=== PATIENT | female | born 1980 | race Caucasian/White ===

== ENCOUNTER 2016-10-29 16:13 | Inpatient (IN) | payer MEDICARE, MEDICAID ==
[~2016-10-29 16:13] MED LIST: ACYCLOVIR800 M1 PO; BENTYL20 MG PO; COMPAZINE10 MG PO; DOXEPIN HCL25 MG PO; DOXEPIN HCL50 M1 PO; FLEXERIL10 MG PO; GLAUCOMA DROPS; HYCOSAMINE PO; HYDROCODON-ACE1 EA16 PO; HYDROCODON-ACE1 EAC7 PO; KLONOPIN1 MG; KLONOPIN2 M1 PO; KLONOPIN2 MG PO; L-THYROXINE PO; MILK OF MAGNESIA PO; MOTRIN800 MG PO; MULTIVITAMIN1 TAB PO; NEURONTIN100 M1 PO; NEURONTIN300 M1 PO; NORCO 10-325 T1 EACH PO; NORCO 10/325 TA1 TAB; NORCO 10/325 TA1 TAB PO; NORCO 10/3251 TAB PO; NORCO 5-325 TA1 EACH PO; NORCO 5/325 TAB1 TAB PO; NORCO 5/3251 TAB PO; PANTOPRAZOLE SO40 M3 PO; PRILOSEC20 M1 PO; PRISTIQ50 MG PO; PROMETHAZINE HC25 M3 PO; SEROQUEL X200 MG/TAB PO; SUCRALFATE1 GM PO; SYNTHROID88 MC1 PO; TOPAMAX100 M2 PO; TOPAMAX100 MG; TRAVATAN Z5 M1 EACH EYE; TRAVATAN Z5 M1 OP; TRAVATAN Z5 ML OP; VIBRAMYCIN100 MG/TA1 PO; ZANTAC150 M1 PO; ZOFRAN ODT4 MG PO
[2016-10-29] MEDS ORDERED: SEROQUEL X300 MG/TAB PO (16:33)
[2016-10-29 16:45] LABS: BASO % 0.3 % (0-2); EOS % 1.3 % (0-7); EOSINOPHIL ABSOLUTE COUNT 0.1 tho/cmm (0.0-0.7); HCT-HEMATOCRIT 36.3 % (34.0-49.0); IMMATURE GRANULOCYTES ABSOLUTE 0.01 tho/cmm (0-0.03); IMMATURE GRANULOCYTES PERCENT 0.1 % (0-0.3); LYMPH % 15.4 % (20-45); LYMPH ABSOLUTE COUNT 1.2 tho/cmm (0.8-4.5); MCHC MEAN CORPUSCULAR HGB CONC 33.1 % (32.0-36.0); MCV (MEAN CELL VOLUME) 124.7 fl (82.0-96.0); MEAN PLATELET VOLUME 9.2 cmc (9.4-12.4); MONO % 6.7 % (0-12); MONOCYTE ABSOLUTE COUNT 0.5 tho/cmm (0.0-1.2); NEUTROPHILS % 76.2 % (40-80); PLATELET COUNT 370 tho/cmm (150-450); RED BLOOD COUNT 2.91 mil/cmm (4.00-5.20); WHITE BLOOD COUNT 7.8 tho/cmm (4.0-10.0)
[2016-10-29 16:47] LABS: MCH (MEAN CORPUSCULAR HGB) >40.9 pg (28.0-32.0)
[2016-10-29 17:00] LABS: ALB/GLOB RATIO 0.6 (0.8-2.0); ALBUMIN 2.9 g/dl (3.5-5.0); ALKALINE PHOSPHATASE 173 U/L (33-138); ALT/SGPT 23 U/L (12-78); ANION GAP 16 mmol/L (0-20); AST/SGOT 28 U/L (10-40); BILIRUBIN,TOTAL 0.2 mg/dl (0-1.5); BLOOD UREA NITROGEN 11 mg/dl (6-24); CALCIUM 8.6 mg/dl (8.5-10.5); CARBON DIOXIDE-VENOUS 21 mmol/L (22-32); CHLORIDE 110 mmol/l (96-110); CREATININE 0.86 mg/dl (0.50-1.10); GLUCOSE 109 mg/dL (70-110); LIPASE 1015 U/L (73-393); POTASSIUM 4.4 mmol/L (3.7-5.1); SODIUM 143 mmol/L (135-145); eGFR VALUE FOR BLACK >90 mL/Min
[2016-10-29 17:02] LABS: PREGNANCY-SERUM NEGATIVE (NEGATIVE)
[2016-10-29] MEDS ORDERED: DOXEPIN HCL PO (18:19)
[2016-10-29] MEDS ORDERED: NORCO 10-325 T1 EACH PO (18:20)
[2016-10-29 19:51] LABS: ALB/GLOB RATIO 0.6 (0.8-2.0); ALBUMIN 2.9 g/dl (3.5-5.0); ALKALINE PHOSPHATASE 171 U/L (33-138); ALT/SGPT 24 U/L (12-78); AST/SGOT 30 U/L (10-40); BILIRUBIN,DIRECT <0.1 mg/dl (0.0-0.3); BILIRUBIN,INDIRECT 0.1 mg/dL (0.0-1.0); BILIRUBIN,TOTAL 0.2 mg/dl (0-1.5)
--- NOTE | 2016-10-29 21:43 | NUR ---
UPON ARRIVAL TO FLOOR FROM ER, PT STATED SHE WANTED TO LEAVE TO HAVE A CIGARETTE AND THEN RETURN. I INFORMED PT THAT THIS WAS AN NON SMOKING CAMPUS AND THAT WE HAVE A NICOTINE PATCH ORDERED FOR HER. PT BECAME TEARFUL AND SAID THE PATHCH WOULD NOT WORK AND THAT SHE NEEDED ONE CIGARETTE. THE ADMITTING DR, DR. WILKES WAS ON FLOOR SO I ASKED HIM TO TALK TO PATIENT, WHICH HE DID. AFTER TALKING TO HER DRKATRIN STATED THAT HE WAS OK WITH HER LEAVING THE FLOOR TO SMOKE THIS ONE TIME. I HAD PATIENT SIGN WAIVER BEFORE LEAVING.
[2016-10-30 04:41] LABS: BASO % 0.3 % (0-2); EOS % 1.8 % (0-7); EOSINOPHIL ABSOLUTE COUNT 0.1 tho/cmm (0.0-0.7); HCT-HEMATOCRIT 31.5 % (34.0-49.0); HGB-HEMOGLOBIN 10.3 gm/dl (12.0-15.5); IMMATURE GRANULOCYTES ABSOLUTE 0.02 tho/cmm (0-0.03); IMMATURE GRANULOCYTES PERCENT 0.3 % (0-0.3); LYMPH % 29.7 % (20-45); LYMPH ABSOLUTE COUNT 2.3 tho/cmm (0.8-4.5); MCHC MEAN CORPUSCULAR HGB CONC 32.7 % (32.0-36.0); MCV (MEAN CELL VOLUME) 124.5 fl (82.0-96.0); MEAN PLATELET VOLUME 9.1 cmc (9.4-12.4); MONO % 8.9 % (0-12); MONOCYTE ABSOLUTE COUNT 0.7 tho/cmm (0.0-1.2); NEUTROPHIL ABSOLUTE COUNT 4.5 tho/cmm (1.6-8.0); NEUTROPHIL-AUTOMATED 4.5 tho/cmm (1.6-8.0); PLATELET COUNT 315 tho/cmm (150-450); RED BLOOD COUNT 2.53 mil/cmm (4.00-5.20); RED CELL DISTRIBUTION WIDTH 13.8 % (12.4-16.4); WHITE BLOOD COUNT 7.7 tho/cmm (4.0-10.0)
[2016-10-30 04:57] LABS: ALB/GLOB RATIO 0.6 (0.8-2.0); ALBUMIN 2.1 g/dl (3.5-5.0); ALKALINE PHOSPHATASE 139 U/L (33-138); ALT/SGPT 18 U/L (12-78); AMYLASE 35 U/L (20-90); AST/SGOT 22 U/L (10-40); BILIRUBIN,TOTAL 0.2 mg/dl (0-1.5); BLOOD UREA NITROGEN 7 mg/dl (6-24); CALCIUM 7.3 mg/dl (8.5-10.5); CARBON DIOXIDE-VENOUS 21 mmol/L (22-32); CHLORIDE 114 mmol/l (96-110); CHOLESTEROL 92 mg/dl (120-200); HDL CHOLESTEROL 34 mg/dl (40-60); SODIUM 144 mmol/L (135-145); eGFR VALUE FOR BLACK >90 mL/Min
[2016-10-30 05:18] LABS: ANION GAP 12 mmol/L (0-20); LDL CHOLESTEROL 21 mg/dl (0-99); LIPASE 585 U/L (73-393); POTASSIUM 3.4 mmol/L (3.7-5.1); TRIGLYCERIDES 188 mg/dl (<149); VLDL 38 mg/dl (0-30)
[2016-10-30 05:19] LABS: GLUCOSE 62 mg/dL (70-110)
[2016-10-30 05:21] LABS: MCH (MEAN CORPUSCULAR HGB) 40.7 pg (28.0-32.0)
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
--- NOTE | 2016-10-30 08:38 | NUR ---
INFUSED ORDERED ALBUMIN AT 0645. POST INFUSION RECHECKED BP WAS 71/38 HR 95, NOTIFIED CHARGE NURSE. TOLD TO NOTIFY IMS, PAGED DR. Wilfredo OLIVEIRA, NOTIFIED LUCINA AT 8003 CHARGE ON CCU. INFORMED TO BRING PATIENT DOWN TO ROOM 375. PATIENTS CALLED AND LEFT MESSAGE WITH HIM. PATIENT STABLE UPON TRANSFER AND ARRIVAL TO ROOM
[2016-10-30 10:52] LABS: ABG CO2 ARTERIAL 19 mmol/L (21-27); ARTERIAL BLD GAS O2 SATURATION 96 % (95-98); ARTERIAL BLOOD GAS PCO2 34 mmHg (32-45); ARTERIAL PO2 79 mmHg (70-100); BICARBONATE 18 mmol/L (21-28); BLOOD GAS BASE EXCESS -7 mM/L (-/+3); PH 7.33 Units (7.35-7.45)
[2016-10-30 12:01] LABS: PROCALCITONIN 64.89 ng/ml (0.05-0.09)
[2016-10-30 12:13] LABS: PROTHROMBIN TIME 11.8 SECONDS (9.0-13.6)
[2016-10-31 05:03] LABS: BASO % 0.3 % (0-2); EOS % 1.7 % (0-7); EOSINOPHIL ABSOLUTE COUNT 0.1 tho/cmm (0.0-0.7); HCT-HEMATOCRIT 28.7 % (34.0-49.0); HGB-HEMOGLOBIN 9.3 gm/dl (12.0-15.5); IMMATURE GRANULOCYTES ABSOLUTE 0.02 tho/cmm (0-0.03); IMMATURE GRANULOCYTES PERCENT 0.3 % (0-0.3); LYMPH % 24.9 % (20-45); LYMPH ABSOLUTE COUNT 1.4 tho/cmm (0.8-4.5); MCHC MEAN CORPUSCULAR HGB CONC 32.4 % (32.0-36.0); MCV (MEAN CELL VOLUME) 124.8 fl (82.0-96.0); MEAN PLATELET VOLUME 9.2 cmc (9.4-12.4); MONO % 11.2 % (0-12); MONOCYTE ABSOLUTE COUNT 0.7 tho/cmm (0.0-1.2); NEUTROPHIL ABSOLUTE COUNT 3.6 tho/cmm (1.6-8.0); NEUTROPHIL-AUTOMATED 3.6 tho/cmm (1.6-8.0); NEUTROPHILS % 61.6 % (40-80); PLATELET COUNT 290 tho/cmm (150-450); RED CELL DISTRIBUTION WIDTH 14.2 % (12.4-16.4); WHITE BLOOD COUNT 5.8 tho/cmm (4.0-10.0)
[2016-10-31 05:19] LABS: MCH (MEAN CORPUSCULAR HGB) 40.4 pg (28.0-32.0)
[2016-10-31 05:25] LABS: ALB/GLOB RATIO 0.6 (0.8-2.0); ALBUMIN 1.9 g/dl (3.5-5.0); ALKALINE PHOSPHATASE 115 U/L (33-138); ALT/SGPT 13 U/L (12-78); AMYLASE 25 U/L (20-90); ANION GAP 9 mmol/L (0-20); AST/SGOT 18 U/L (10-40); BILIRUBIN,TOTAL 0.2 mg/dl (0-1.5); BLOOD UREA NITROGEN 2 mg/dl (6-24); CALCIUM 7.4 mg/dl (8.5-10.5); CARBON DIOXIDE-VENOUS 23 mmol/L (22-32); CHLORIDE 118 mmol/l (96-110); CREATININE 0.56 mg/dl (0.50-1.10); MAGNESIUM 1.9 mg/dl (1.3-2.6); PHOSPHOROUS 2.1 mg/dl (2.5-4.9); POTASSIUM 3.2 mmol/L (3.7-5.1); SODIUM 147 mmol/L (135-145); eGFR VALUE FOR BLACK >90 mL/Min
[2016-10-31 05:30] LABS: GLUCOSE 95 mg/dL (70-110); LIPASE 360 U/L (73-393)
[2016-10-31 06:31] LABS: PROCALCITONIN 32.02 ng/ml (0.05-0.09)
[2016-11-01 04:34] LABS: BASO % 0.3 % (0-2); EOS % 1.9 % (0-7); EOSINOPHIL ABSOLUTE COUNT 0.1 tho/cmm (0.0-0.7); HCT-HEMATOCRIT 32.5 % (34.0-49.0); HGB-HEMOGLOBIN 10.4 gm/dl (12.0-15.5); IMMATURE GRANULOCYTES ABSOLUTE 0.02 tho/cmm (0-0.03); IMMATURE GRANULOCYTES PERCENT 0.3 % (0-0.3); LYMPH % 34.1 % (20-45); LYMPH ABSOLUTE COUNT 2.3 tho/cmm (0.8-4.5); MCV (MEAN CELL VOLUME) 126.5 fl (82.0-96.0); MEAN PLATELET VOLUME 9.5 cmc (9.4-12.4); MONO % 10.5 % (0-12); MONOCYTE ABSOLUTE COUNT 0.7 tho/cmm (0.0-1.2); NEUTROPHIL ABSOLUTE COUNT 3.6 tho/cmm (1.6-8.0); NEUTROPHIL-AUTOMATED 3.6 tho/cmm (1.6-8.0); NEUTROPHILS % 52.9 % (40-80); PLATELET COUNT 312 tho/cmm (150-450); RED BLOOD COUNT 2.57 mil/cmm (4.00-5.20); RED CELL DISTRIBUTION WIDTH 14.2 % (12.4-16.4); WHITE BLOOD COUNT 6.9 tho/cmm (4.0-10.0)
[2016-11-01 04:38] LABS: AMYLASE 34 U/L (20-90); ANION GAP 13 mmol/L (0-20); BLOOD UREA NITROGEN 1 mg/dl (6-24); CALCIUM 7.8 mg/dl (8.5-10.5); CARBON DIOXIDE-VENOUS 22 mmol/L (22-32); CHLORIDE 115 mmol/l (96-110); CREATININE 0.64 mg/dl (0.50-1.10); GLUCOSE 119 mg/dL (70-110); LIPASE 355 U/L (73-393); POTASSIUM 3.5 mmol/L (3.7-5.1); SODIUM 146 mmol/L (135-145); eGFR VALUE FOR BLACK >90 mL/Min
[2016-11-01 04:59] LABS: MCH (MEAN CORPUSCULAR HGB) 40.5 pg (28.0-32.0)
[2016-11-01 05:42] LABS: PROCALCITONIN 12.86 ng/ml (0.05-0.09)
[2017-03-10] MEDS ORDERED: NORCO 5-325 TA1 EACH PO (16:27)
== END 2016-11-01 15:00 | DRG 872 ==
LOC: EDMED 16:13 → EMR2 19:20 → 5WF 21:20 → CCU 10-30 08:10
PROVIDERS: Emergency Medicine; Hospitalist; Internal Medicine; Internal Medicine Pulmonary Disease; ADMIT Hospitalist
DX: A41.89 Other specified sepsis (principal); E44.0 Moderate protein-calorie malnutrition; F33.9 Major depressive disorder, recurrent, unspecified; S91.001A Unspecified open wound, right ankle, initial encounter; A08.4 Viral intestinal infection, unspecified; R65.20 Severe sepsis without septic shock; E86.9 Volume depletion, unspecified; K52.9 Noninfective gastroenteritis and colitis, unspecified; D53.9 Nutritional anemia, unspecified; F60.3 Borderline personality disorder; E06.3 Autoimmune thyroiditis; G43.909 Migraine, unspecified, not intractable, without status migrainosus; F43.10 Post-traumatic stress disorder, unspecified; H40.9 Unspecified glaucoma; E87.6 Hypokalemia; F17.210 Nicotine dependence, cigarettes, uncomplicated; K21.9 Gastro-esophageal reflux disease without esophagitis; X58.XXXA Exposure to other specified factors, initial encounter; Z86.711 Personal history of pulmonary embolism; Z86.718 Personal history of other venous thrombosis and embolism
CPT/HCPCS: C1751; C9113; J0744; J1650; J2270; J2405; J2543; J3370; J3480; J7030; J7040; J7050; P9045; Q9967

== ENCOUNTER 2016-11-08 13:44 | Inpatient (IN) | payer MEDICARE, MEDICAID ==
[~2016-11-08 13:44] MED LIST changes: +DOXEPIN HCL PO; +SEROQUEL X300 MG/TAB PO
[2016-11-08 17:47] LABS: BASO % 0.3 % (0-2); EOS % 1.3 % (0-7); EOSINOPHIL ABSOLUTE COUNT 0.1 tho/cmm (0.0-0.7); HCT-HEMATOCRIT 36.6 % (34.0-49.0); HGB-HEMOGLOBIN 12.1 gm/dl (12.0-15.5); IMMATURE GRANULOCYTES ABSOLUTE 0.06 tho/cmm (0-0.03); LYMPH % 31.6 % (20-45); LYMPH ABSOLUTE COUNT 1.9 tho/cmm (0.8-4.5); MCHC MEAN CORPUSCULAR HGB CONC 33.1 % (32.0-36.0); MCV (MEAN CELL VOLUME) 124.1 fl (82.0-96.0); MEAN PLATELET VOLUME 10.5 cmc (9.4-12.4); MONO % 7.5 % (0-12); MONOCYTE ABSOLUTE COUNT 0.5 tho/cmm (0.0-1.2); NEUTROPHIL ABSOLUTE COUNT 3.6 tho/cmm (1.6-8.0); NEUTROPHIL-AUTOMATED 3.6 tho/cmm (1.6-8.0); NEUTROPHILS % 58.3 % (40-80); RED BLOOD COUNT 2.95 mil/cmm (4.00-5.20); RED CELL DISTRIBUTION WIDTH 13.7 % (12.4-16.4); WHITE BLOOD COUNT 6.1 tho/cmm (4.0-10.0)
[2016-11-08 18:04] LABS: ALB/GLOB RATIO 0.6 (0.8-2.0); ALKALINE PHOSPHATASE 241 U/L (33-138); ALT/SGPT 37 U/L (12-78); AMYLASE 41 U/L (20-90); ANION GAP 14 mmol/L (0-20); AST/SGOT 50 U/L (10-40); BILIRUBIN,DIRECT <0.1 mg/dl (0.0-0.3); BILIRUBIN,INDIRECT 0.1 mg/dL (0.0-1.0); BILIRUBIN,TOTAL 0.2 mg/dl (0-1.5); BLOOD UREA NITROGEN 9 mg/dl (6-24); CALCIUM 8.7 mg/dl (8.5-10.5); CARBON DIOXIDE-VENOUS 20 mmol/L (22-32); CHLORIDE 108 mmol/l (96-110); CREATININE 0.58 mg/dl (0.50-1.10); GLUCOSE 84 mg/dL (70-110); LIPASE 723 U/L (73-393); POTASSIUM 4.1 mmol/L (3.7-5.1); SODIUM 138 mmol/L (135-145); eGFR VALUE FOR BLACK >90 mL/Min
[2016-11-08 18:23] LABS: PROCALCITONIN 59.76 ng/ml (0.05-0.09)
[2016-11-08 23:28] LABS: URINE BILIRUBIN NEGATIVE (NEG); URINE BLOOD NEGATIVE (NEG); URINE GLUCOSE (UA) NEGATIVE (NEG); URINE KETONE NEGATIVE (NEG); URINE LEUKOCYTE ESTERASE NEGATIVE (NEG); URINE NITRITE NEGATIVE (NEG); URINE PROTEIN SMALL (NEG)
[2016-11-08 23:29] LABS: URINE APPEARANCE CLEAR; URINE COLOR YELLOW
[2016-11-08 23:38] LABS: URINE EPITHELIAL CELLS 0-3 /[HPF] (0-10); URINE RBC 0-1 /[HPF] (0-5); URINE WBC 0-3 /[HPF] (0-5)
[2016-11-09 05:09] LABS: BASO % 0.4 % (0-2); EOS % 1.4 % (0-7); EOSINOPHIL ABSOLUTE COUNT 0.1 tho/cmm (0.0-0.7); HCT-HEMATOCRIT 31.2 % (34.0-49.0); HGB-HEMOGLOBIN 10.1 gm/dl (12.0-15.5); IMMATURE GRANULOCYTES ABSOLUTE 0.02 tho/cmm (0-0.03); IMMATURE GRANULOCYTES PERCENT 0.4 % (0-0.3); LYMPH % 51.3 % (20-45); LYMPH ABSOLUTE COUNT 2.5 tho/cmm (0.8-4.5); MCHC MEAN CORPUSCULAR HGB CONC 32.4 % (32.0-36.0); MCV (MEAN CELL VOLUME) 126.8 fl (82.0-96.0); MEAN PLATELET VOLUME 9.3 cmc (9.4-12.4); MONO % 11.5 % (0-12); MONOCYTE ABSOLUTE COUNT 0.6 tho/cmm (0.0-1.2); NEUTROPHIL ABSOLUTE COUNT 1.7 tho/cmm (1.6-8.0); NEUTROPHIL-AUTOMATED 1.7 tho/cmm (1.6-8.0); RED BLOOD COUNT 2.46 mil/cmm (4.00-5.20); RED CELL DISTRIBUTION WIDTH 13.6 % (12.4-16.4); WHITE BLOOD COUNT 4.9 tho/cmm (4.0-10.0)
[2016-11-09 05:17] LABS: PLATELET COUNT 343 tho/cmm (150-450)
[2016-11-09 05:39] LABS: ALBUMIN 2.2 g/dl (3.5-5.0); ALKALINE PHOSPHATASE 182 U/L (33-138); ALT/SGPT 26 U/L (12-78); AMYLASE 34 U/L (20-90); ANION GAP 13 mmol/L (0-20); AST/SGOT 35 U/L (10-40); BILIRUBIN,DIRECT <0.1 mg/dl (0.0-0.3); BILIRUBIN,INDIRECT 0.1 mg/dL (0.0-1.0); BILIRUBIN,TOTAL 0.2 mg/dl (0-1.5); BLOOD UREA NITROGEN 7 mg/dl (6-24); CALCIUM 7.6 mg/dl (8.5-10.5); CARBON DIOXIDE-VENOUS 19 mmol/L (22-32); CHLORIDE 116 mmol/l (96-110); CREATININE 0.51 mg/dl (0.50-1.10); GLUCOSE 71 mg/dL (70-110); MAGNESIUM 1.9 mg/dl (1.3-2.6); POTASSIUM 3.8 mmol/L (3.7-5.1); SODIUM 144 mmol/L (135-145); eGFR VALUE FOR BLACK >90 mL/Min
[2016-11-09 05:41] LABS: ALB/GLOB RATIO 0.6 (0.8-2.0); LIPASE 535 U/L (73-393)
[2017-03-10] MEDS ORDERED: NORCO 5-325 TA1 EACH PO (16:27)
== END 2016-11-09 16:32 | disposition left against medical advice (07) | DRG 316 ==
LOC: CCU 13:44
PROVIDERS: Internal Medicine; Nurse Practitioner Acute Care; ADMIT Internal Medicine
PROC: 02HV33Z Insertion of Infusion Device into Superior Vena Cava, Percutaneous Approach (ICD-10-PCS; principal; 2016-11-08)
PROC: 4A02X4A Measurement of Cardiac Electrical Activity, Guidance, External Approach (ICD-10-PCS; 2016-11-08)
DX: I95.9 Hypotension, unspecified (principal); F32.9 Major depressive disorder, single episode, unspecified; F43.10 Post-traumatic stress disorder, unspecified; F60.9 Personality disorder, unspecified; R00.0 Tachycardia, unspecified; R10.9 Unspecified abdominal pain; R11.2 Nausea with vomiting, unspecified; R55 Syncope and collapse; Z23 Encounter for immunization
CPT/HCPCS: C1751; G0009; J0834; J1650; J2270; J2405; J7030

== ENCOUNTER 2016-11-25 08:12 | Inpatient (IN) | payer MEDICARE, MEDICAID ==
[2016-11-25 09:10] LABS: URINE BILIRUBIN NEGATIVE (NEG); URINE BLOOD LARGE (NEG); URINE GLUCOSE (UA) NEGATIVE (NEG); URINE KETONE SMALL (NEG); URINE LEUKOCYTE ESTERASE NEGATIVE (NEG); URINE NITRITE NEGATIVE (NEG); URINE PROTEIN SMALL (NEG)
[2016-11-25 09:12] LABS: URINE APPEARANCE CLEAR; URINE COLOR DARK YELLOW
[2016-11-25 09:24] LABS: PREGNANCY-SERUM NEGATIVE (NEGATIVE)
[2016-11-25 09:29] LABS: ALB/GLOB RATIO 0.6 (0.8-2.0); ALBUMIN 2.1 g/dl (3.5-5.0); ALCOHOL (ETOH) <10 mg/dl (<10); ALKALINE PHOSPHATASE 114 U/L (33-138); ALT/SGPT 38 U/L (12-78); AMYLASE 12 U/L (20-90); ANION GAP 20 mmol/L (0-20); AST/SGOT 90 U/L (10-40); BILIRUBIN,TOTAL 0.5 mg/dl (0-1.5); BLOOD UREA NITROGEN 8 mg/dl (6-24); CALCIUM 7.6 mg/dl (8.5-10.5); CARBON DIOXIDE-VENOUS 13 mmol/L (22-32); CHLORIDE 113 mmol/l (96-110); CREATININE 1.25 mg/dl (0.50-1.10); GLUCOSE 94 mg/dL (70-110); LIPASE 258 U/L (73-393); MAGNESIUM 1.9 mg/dl (1.3-2.6); POTASSIUM 3.1 mmol/L (3.7-5.1); SALICYLATE 4.2 mg/dl (2.8-20); SODIUM 143 mmol/L (135-145); T4 (THYROXINE) 6.7 ug/dl (5.0-12.6); eGFR VALUE FOR BLACK 64 mL/Min
[2016-11-25 09:32] LABS: TSH-THYROID STIMULATING HORM. 0.08 uIU/ml (0.40-3.80)
[2016-11-25] MEDS ORDERED: SEROQUEL X200 MG/TAB PO (09:40)
[2016-11-25] MEDS ORDERED: PROTONIX40 M2 PO (09:43)
[2016-11-25] MEDS ORDERED: ZOFRAN4 M2 PO (09:43)
[2016-11-25 09:44] LABS: URINE RBC 0-2 /[HPF] (0-5); URINE WBC 0 /[HPF] (0-5)
[2016-11-25 09:45] LABS: URINE BACTERIA 1+; URINE EPITHELIAL CELLS 0-1 /[HPF] (0-10)
[2016-11-25 09:50] LABS: INR 1.4 INR (0.9-1.1)
[2016-11-25 09:55] LABS: HCT-HEMATOCRIT 29.1 % (34.0-49.0); HGB-HEMOGLOBIN 9.7 gm/dl (12.0-15.5); MCHC MEAN CORPUSCULAR HGB CONC 33.3 % (32.0-36.0); MEAN PLATELET VOLUME 9.4 cmc (9.4-12.4); NEUTROPHIL-AUTOMATED 5.8 tho/cmm (1.6-8.0); RED BLOOD COUNT 2.39 mil/cmm (4.00-5.20); RED CELL DISTRIBUTION WIDTH 16.2 % (12.4-16.4); WHITE BLOOD COUNT 7.7 tho/cmm (4.0-10.0)
[2016-11-25 09:56] LABS: BASO % 0.1 % (0-2); IMMATURE GRANULOCYTES ABSOLUTE 0.58 tho/cmm (0-0.03); IMMATURE GRANULOCYTES PERCENT 7.5 % (0-0.3); LYMPH % 7.8 % (20-45); LYMPH ABSOLUTE COUNT 0.6 tho/cmm (0.8-4.5); MCH (MEAN CORPUSCULAR HGB) 40.6 pg (28.0-32.0); MCV (MEAN CELL VOLUME) 121.8 fl (82.0-96.0); MONO % 9.2 % (0-12); MONOCYTE ABSOLUTE COUNT 0.7 tho/cmm (0.0-1.2); NEUTROPHIL ABSOLUTE COUNT 5.8 tho/cmm (1.6-8.0); NEUTROPHILS % 75.4 % (40-80)
[2016-11-25 10:28] LABS: PROCALCITONIN >200.00 ng/ml (0.05-0.09)
[2016-11-25 10:39] LABS: PLATELET COUNT 243 tho/cmm (150-450)
[2016-11-25 12:57] LABS: ARTERIAL BLD GAS O2 SATURATION 98 % (95-98); ARTERIAL PO2 102 mmHg (70-100); BICARBONATE 10 mmol/L (21-28); BLOOD GAS BASE EXCESS -14 mM/L (-/+3); PH 7.34 Units (7.35-7.45)
[2016-11-25 13:01] LABS: ARTERIAL BLOOD GAS PCO2 19 mmHg (32-45)
[2016-11-25 13:02] LABS: ABG CO2 ARTERIAL 9 mmol/L (21-27)
[2016-11-25 13:31] LABS: OSMOLALITY 294 mOsm/kg (275-295)
[2016-11-25 15:53] LABS: INR 1.6 INR (0.9-1.1); PROTHROMBIN TIME 19.2 SECONDS (9.0-13.6)
[2016-11-25 16:07] LABS: ALB/GLOB RATIO 0.5 (0.8-2.0); ALKALINE PHOSPHATASE 103 U/L (33-138); ALT/SGPT 50 U/L (12-78); BILIRUBIN,TOTAL 0.5 mg/dl (0-1.5); BLOOD UREA NITROGEN 7 mg/dl (6-24); CALCIUM 7.5 mg/dl (8.5-10.5); CARBON DIOXIDE-VENOUS 16 mmol/L (22-32); CHLORIDE 112 mmol/l (96-110); SALICYLATE 3.2 mg/dl (2.8-20); SODIUM 146 mmol/L (135-145); eGFR VALUE FOR BLACK >90 mL/Min
[2016-11-25 16:10] LABS: ANION GAP 21 mmol/L (0-20); AST/SGOT 156 U/L (10-40); GLUCOSE 167 mg/dL (70-110)
[2016-11-25 16:11] LABS: POTASSIUM 2.9 mmol/L (3.7-5.1)
[2016-11-25 16:25] LABS: PROCALCITONIN >200.00 ng/ml (0.05-0.09)
[2016-11-25 19:17] LABS: ACETAMINOPHEN LEVEL 7.7 ug/ml (10-30); ANION GAP 21 mmol/L (0-20); BLOOD UREA NITROGEN 7 mg/dl (6-24); CALCIUM 7.6 mg/dl (8.5-10.5); CARBON DIOXIDE-VENOUS 15 mmol/L (22-32); CHLORIDE 115 mmol/l (96-110); CREATININE 0.72 mg/dl (0.50-1.10); GLUCOSE 115 mg/dL (70-110); POTASSIUM 3.3 mmol/L (3.7-5.1); SALICYLATE 3.4 mg/dl (2.8-20); SODIUM 148 mmol/L (135-145); eGFR VALUE FOR BLACK >90 mL/Min
[2016-11-25 20:42] LABS: ARTERIAL BLD GAS O2 SATURATION 96 % (95-98); BICARBONATE 14 mmol/L (21-28); BLOOD GAS BASE EXCESS -10 mM/L (-/+3); PH 7.38 Units (7.35-7.45)
[2016-11-25 20:43] LABS: ABG CO2 ARTERIAL 15 mmol/L (21-27); ARTERIAL BLOOD GAS PCO2 24 mmHg (32-45); ARTERIAL PO2 74 mmHg (70-100)
[2016-11-26 00:40] LABS: ALB/GLOB RATIO 0.5 (0.8-2.0); ALBUMIN 1.6 g/dl (3.5-5.0); ALKALINE PHOSPHATASE 89 U/L (33-138); ALT/SGPT 46 U/L (12-78); ANION GAP 15 mmol/L (0-20); AST/SGOT 134 U/L (10-40); BILIRUBIN,DIRECT 0.2 mg/dl (0.0-0.3); BILIRUBIN,INDIRECT 0.2 mg/dL (0.0-1.0); BILIRUBIN,TOTAL 0.4 mg/dl (0-1.5); BLOOD UREA NITROGEN 6 mg/dl (6-24); CALCIUM 7.3 mg/dl (8.5-10.5); CARBON DIOXIDE-VENOUS 19 mmol/L (22-32); CHLORIDE 114 mmol/l (96-110); CREATININE 0.66 mg/dl (0.50-1.10); GLUCOSE 135 mg/dL (70-110); POTASSIUM 3.2 mmol/L (3.7-5.1); SODIUM 145 mmol/L (135-145); eGFR VALUE FOR BLACK >90 mL/Min
[2016-11-26 01:22] LABS: PROTHROMBIN TIME 23.1 SECONDS (9.0-13.6)
[2016-11-26 03:35] LABS: HGB-HEMOGLOBIN 8.3 gm/dl (12.0-15.5); MCHC MEAN CORPUSCULAR HGB CONC 34.6 % (32.0-36.0); MEAN PLATELET VOLUME 9.3 cmc (9.4-12.4); NEUTROPHIL-AUTOMATED 4.2 tho/cmm (1.6-8.0); PLATELET COUNT 201 tho/cmm (150-450); RED BLOOD COUNT 2.06 mil/cmm (4.00-5.20); RED CELL DISTRIBUTION WIDTH 15.7 % (12.4-16.4); WHITE BLOOD COUNT 6.3 tho/cmm (4.0-10.0)
[2016-11-26 04:32] LABS: MCH (MEAN CORPUSCULAR HGB) 40.3 pg (28.0-32.0); MCV (MEAN CELL VOLUME) 116.5 fl (82.0-96.0)
[2016-11-26 05:17] LABS: ARTERIAL BLD GAS O2 SATURATION 92 % (95-98); BLOOD GAS BASE EXCESS -1 mM/L (-/+3)
[2016-11-26 05:20] LABS: ABG CO2 ARTERIAL 23 mmol/L (21-27); ARTERIAL BLOOD GAS PCO2 30 mmHg (32-45); ARTERIAL PO2 56 mmHg (70-100); PH 7.47 Units (7.35-7.45)
[2016-11-26 05:20] LABS: ACETAMINOPHEN LEVEL 5.5 ug/ml (10-30); ALB/GLOB RATIO 0.5 (0.8-2.0); ALBUMIN 1.6 g/dl (3.5-5.0); ALKALINE PHOSPHATASE 87 U/L (33-138); ALT/SGPT 46 U/L (12-78); ANION GAP 13 mmol/L (0-20); AST/SGOT 132 U/L (10-40); BILIRUBIN,DIRECT 0.2 mg/dl (0.0-0.3); BILIRUBIN,INDIRECT 0.2 mg/dL (0.0-1.0); BILIRUBIN,TOTAL 0.4 mg/dl (0-1.5); BLOOD UREA NITROGEN 6 mg/dl (6-24); CALCIUM 7.5 mg/dl (8.5-10.5); CARBON DIOXIDE-VENOUS 22 mmol/L (22-32); CHLORIDE 111 mmol/l (96-110); CREATININE 0.52 mg/dl (0.50-1.10); GLUCOSE 133 mg/dL (70-110); POTASSIUM 3.2 mmol/L (3.7-5.1); SODIUM 143 mmol/L (135-145); eGFR VALUE FOR BLACK >90 mL/Min
[2016-11-26 05:21] LABS: BICARBONATE 22 mmol/L (21-28)
[2016-11-26 06:09] LABS: BAND % 5 % (0-20); BAND ABSOLUTE COUNT 0.3 tho/cmm (0-2.0)
[2016-11-26 06:10] LABS: WBC MORPHOLOGY TOXIC GRANULATION
[2016-11-26 08:52] LABS: ANION GAP 11 mmol/L (0-20); BLOOD UREA NITROGEN 5 mg/dl (6-24); CALCIUM 7.4 mg/dl (8.5-10.5); CARBON DIOXIDE-VENOUS 26 mmol/L (22-32); CHLORIDE 109 mmol/l (96-110); CREATININE 0.58 mg/dl (0.50-1.10); GLUCOSE 139 mg/dL (70-110); POTASSIUM 3.4 mmol/L (3.7-5.1); SODIUM 143 mmol/L (135-145); eGFR VALUE FOR BLACK >90 mL/Min
[2016-11-26 13:36] LABS: INR 1.7 INR (0.9-1.1); PROTHROMBIN TIME 19.9 SECONDS (9.0-13.6)
[2016-11-26 13:47] LABS: ALB/GLOB RATIO 0.5 (0.8-2.0); ALBUMIN 1.5 g/dl (3.5-5.0); ALKALINE PHOSPHATASE 106 U/L (33-138); ALT/SGPT 45 U/L (12-78); ANION GAP 12 mmol/L (0-20); AST/SGOT 117 U/L (10-40); BILIRUBIN,DIRECT 0.1 mg/dl (0.0-0.3); BILIRUBIN,INDIRECT 0.3 mg/dL (0.0-1.0); BILIRUBIN,TOTAL 0.4 mg/dl (0-1.5); BLOOD UREA NITROGEN 4 mg/dl (6-24); CALCIUM 7.5 mg/dl (8.5-10.5); CARBON DIOXIDE-VENOUS 28 mmol/L (22-32); CHLORIDE 109 mmol/l (96-110); CREATININE 0.47 mg/dl (0.50-1.10); GLUCOSE 121 mg/dL (70-110); SODIUM 145 mmol/L (135-145); eGFR VALUE FOR BLACK >90 mL/Min
[2016-11-26 17:33] LABS: ANION GAP 8 mmol/L (0-20); BLOOD UREA NITROGEN 3 mg/dl (6-24); CALCIUM 7.8 mg/dl (8.5-10.5); CARBON DIOXIDE-VENOUS 29 mmol/L (22-32); CHLORIDE 110 mmol/l (96-110); CREATININE 0.45 mg/dl (0.50-1.10); GLUCOSE 116 mg/dL (70-110); POTASSIUM 3.2 mmol/L (3.7-5.1); SODIUM 144 mmol/L (135-145); eGFR VALUE FOR BLACK >90 mL/Min
[2016-11-26 20:58] LABS: ANION GAP 10 mmol/L (0-20); BLOOD UREA NITROGEN 3 mg/dl (6-24); CARBON DIOXIDE-VENOUS 29 mmol/L (22-32); CHLORIDE 111 mmol/l (96-110); CREATININE 0.35 mg/dl (0.50-1.10); GLUCOSE 117 mg/dL (70-110); SODIUM 146 mmol/L (135-145); eGFR VALUE FOR BLACK >90 mL/Min
[2016-11-26 21:05] LABS: POTASSIUM 3.8 mmol/L (3.7-5.1)
[2016-11-27 00:52] LABS: ALB/GLOB RATIO 0.6 (0.8-2.0); ALBUMIN 1.8 g/dl (3.5-5.0)
[2016-11-27 00:54] LABS: BILIRUBIN,DIRECT 0.1 mg/dl (0.0-0.3); BILIRUBIN,INDIRECT 0.6 mg/dL (0.0-1.0); BILIRUBIN,TOTAL 0.7 mg/dl (0-1.5)
[2016-11-27 01:12] LABS: INR 1.5 INR (0.9-1.1)
[2016-11-27 04:15] LABS: ARTERIAL BLD GAS O2 SATURATION 99 % (95-98); BLOOD GAS BASE EXCESS 7 mM/L (-/+3)
[2016-11-27 04:19] LABS: ABG CO2 ARTERIAL 32 mmol/L (21-27); ARTERIAL BLOOD GAS PCO2 40 mmHg (32-45); ARTERIAL PO2 113 mmHg (70-100); BICARBONATE 30 mmol/L (21-28)
[2016-11-27 10:35] LABS: INR 1.5 INR (0.9-1.1); PROTHROMBIN TIME 17.6 SECONDS (9.0-13.6)
[2016-11-27 10:45] LABS: ALB/GLOB RATIO 0.6 (0.8-2.0); ALBUMIN 1.9 g/dl (3.5-5.0); ALKALINE PHOSPHATASE 106 U/L (33-138); ALT/SGPT 45 U/L (12-78); ANION GAP 9 mmol/L (0-20); AST/SGOT 121 U/L (10-40); BILIRUBIN,INDIRECT 0.3 mg/dL (0.0-1.0); BILIRUBIN,TOTAL 0.8 mg/dl (0-1.5); BLOOD UREA NITROGEN 2 mg/dl (6-24); CALCIUM 7.4 mg/dl (8.5-10.5); CARBON DIOXIDE-VENOUS 28 mmol/L (22-32); CHLORIDE 112 mmol/l (96-110); CREATININE 0.36 mg/dl (0.50-1.10); GLUCOSE 104 mg/dL (70-110); POTASSIUM 3.9 mmol/L (3.7-5.1); SODIUM 145 mmol/L (135-145); eGFR VALUE FOR BLACK >90 mL/Min
[2016-11-27 10:46] LABS: BILIRUBIN,DIRECT 0.5 mg/dl (0.0-0.3)
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
[2016-11-27 14:11] LABS: ANION GAP 10 mmol/L (0-20); BLOOD UREA NITROGEN 2 mg/dl (6-24); CALCIUM 7.5 mg/dl (8.5-10.5); CARBON DIOXIDE-VENOUS 27 mmol/L (22-32); CHLORIDE 112 mmol/l (96-110); CREATININE 0.31 mg/dl (0.50-1.10); GLUCOSE 114 mg/dL (70-110); POTASSIUM 3.4 mmol/L (3.7-5.1); SODIUM 146 mmol/L (135-145); eGFR VALUE FOR BLACK >90 mL/Min
[2016-11-27 15:09] LABS: BASO % 0.1 % (0-2); EOS % 0.5 % (0-7); EOSINOPHIL ABSOLUTE COUNT 0.1 tho/cmm (0.0-0.7); HGB-HEMOGLOBIN 7.5 gm/dl (12.0-15.5); IMMATURE GRANULOCYTES ABSOLUTE 0.04 tho/cmm (0-0.03); IMMATURE GRANULOCYTES PERCENT 0.4 % (0-0.3); LYMPH % 12.7 % (20-45); LYMPH ABSOLUTE COUNT 1.2 tho/cmm (0.8-4.5); MCV (MEAN CELL VOLUME) 120.3 fl (82.0-96.0); MEAN PLATELET VOLUME 10.1 cmc (9.4-12.4); MONO % 9.8 % (0-12); MONOCYTE ABSOLUTE COUNT 0.9 tho/cmm (0.0-1.2); NEUTROPHIL ABSOLUTE COUNT 7.1 tho/cmm (1.6-8.0); NEUTROPHIL-AUTOMATED 7.1 tho/cmm (1.6-8.0); NEUTROPHILS % 76.5 % (40-80); RED BLOOD COUNT 1.87 mil/cmm (4.00-5.20); RED CELL DISTRIBUTION WIDTH 16.8 % (12.4-16.4); WHITE BLOOD COUNT 9.3 tho/cmm (4.0-10.0)
[2016-11-27 15:13] LABS: HCT-HEMATOCRIT 22.5 % (34.0-49.0); MCH (MEAN CORPUSCULAR HGB) 40.1 pg (28.0-32.0); MCHC MEAN CORPUSCULAR HGB CONC 33.3 % (32.0-36.0)
[2016-11-27 17:04] LABS: PLATELET COUNT 144 tho/cmm (150-450)
[2016-11-27 18:00] LABS: ANION GAP 11 mmol/L (0-20); BLOOD UREA NITROGEN 2 mg/dl (6-24); CALCIUM 7.7 mg/dl (8.5-10.5); CARBON DIOXIDE-VENOUS 25 mmol/L (22-32); CHLORIDE 112 mmol/l (96-110); GLUCOSE 95 mg/dL (70-110); POTASSIUM 4.1 mmol/L (3.7-5.1); SODIUM 144 mmol/L (135-145); eGFR VALUE FOR BLACK >90 mL/Min
[2016-11-27 21:34] LABS: ANION GAP 12 mmol/L (0-20); BLOOD UREA NITROGEN 3 mg/dl (6-24); CALCIUM 7.6 mg/dl (8.5-10.5); CARBON DIOXIDE-VENOUS 25 mmol/L (22-32); CHLORIDE 110 mmol/l (96-110); GLUCOSE 95 mg/dL (70-110); POTASSIUM 3.7 mmol/L (3.7-5.1); SODIUM 143 mmol/L (135-145); eGFR VALUE FOR BLACK >90 mL/Min
[2016-11-28 02:14] LABS: BASO % 0.1 % (0-2); EOS % 1.1 % (0-7); EOSINOPHIL ABSOLUTE COUNT 0.1 tho/cmm (0.0-0.7); HGB-HEMOGLOBIN 7.5 gm/dl (12.0-15.5); IMMATURE GRANULOCYTES ABSOLUTE 0.03 tho/cmm (0-0.03); IMMATURE GRANULOCYTES PERCENT 0.4 % (0-0.3); LYMPH % 20.9 % (20-45); LYMPH ABSOLUTE COUNT 1.6 tho/cmm (0.8-4.5); MCV (MEAN CELL VOLUME) 122.4 fl (82.0-96.0); MONO % 11.5 % (0-12); MONOCYTE ABSOLUTE COUNT 0.9 tho/cmm (0.0-1.2); PLATELET COUNT 132 tho/cmm (150-450); RED BLOOD COUNT 1.83 mil/cmm (4.00-5.20); RED CELL DISTRIBUTION WIDTH 16.4 % (12.4-16.4); WHITE BLOOD COUNT 7.6 tho/cmm (4.0-10.0)
[2016-11-28 02:18] LABS: HCT-HEMATOCRIT 22.4 % (34.0-49.0); MCHC MEAN CORPUSCULAR HGB CONC 33.5 % (32.0-36.0)
[2016-11-28 02:58] LABS: ANION GAP 13 mmol/L (0-20); BLOOD UREA NITROGEN 2 mg/dl (6-24); CALCIUM 7.7 mg/dl (8.5-10.5); CARBON DIOXIDE-VENOUS 24 mmol/L (22-32); CHLORIDE 110 mmol/l (96-110); CREATININE 0.32 mg/dl (0.50-1.10); GLUCOSE 89 mg/dL (70-110); POTASSIUM 3.5 mmol/L (3.7-5.1); SODIUM 143 mmol/L (135-145); eGFR VALUE FOR BLACK >90 mL/Min
[2016-11-28 06:39] LABS: ANION GAP 12 mmol/L (0-20); BLOOD UREA NITROGEN 2 mg/dl (6-24); CALCIUM 7.5 mg/dl (8.5-10.5); CARBON DIOXIDE-VENOUS 24 mmol/L (22-32); CHLORIDE 111 mmol/l (96-110); GLUCOSE 92 mg/dL (70-110); POTASSIUM 3.9 mmol/L (3.7-5.1); SODIUM 143 mmol/L (135-145); eGFR VALUE FOR BLACK >90 mL/Min
[2016-11-28 11:01] LABS: ANION GAP 13 mmol/L (0-20); BLOOD UREA NITROGEN 2 mg/dl (6-24); CALCIUM 7.8 mg/dl (8.5-10.5); CARBON DIOXIDE-VENOUS 24 mmol/L (22-32); CHLORIDE 110 mmol/l (96-110); CREATININE 0.37 mg/dl (0.50-1.10); GLUCOSE 94 mg/dL (70-110); POTASSIUM 3.9 mmol/L (3.7-5.1); SODIUM 143 mmol/L (135-145); eGFR VALUE FOR BLACK >90 mL/Min
[2016-11-28 15:36] LABS: ANION GAP 13 mmol/L (0-20); BLOOD UREA NITROGEN 2 mg/dl (6-24); CARBON DIOXIDE-VENOUS 24 mmol/L (22-32); CHLORIDE 110 mmol/l (96-110); CREATININE 0.35 mg/dl (0.50-1.10); GLUCOSE 94 mg/dL (70-110); POTASSIUM 3.8 mmol/L (3.7-5.1); SODIUM 143 mmol/L (135-145); eGFR VALUE FOR BLACK >90 mL/Min
[2016-11-28 23:31] LABS: ANION GAP 12 mmol/L (0-20); BLOOD UREA NITROGEN 1 mg/dl (6-24); CALCIUM 6.8 mg/dl (8.5-10.5); CARBON DIOXIDE-VENOUS 23 mmol/L (22-32); CHLORIDE 114 mmol/l (96-110); CREATININE 0.25 mg/dl (0.50-1.10); GLUCOSE 85 mg/dL (70-110); POTASSIUM 3.1 mmol/L (3.7-5.1); SODIUM 146 mmol/L (135-145); eGFR VALUE FOR BLACK >90 mL/Min
[2016-11-29 05:34] LABS: BLOOD UREA NITROGEN 1 mg/dl (6-24); CARBON DIOXIDE-VENOUS 23 mmol/L (22-32); CHLORIDE 115 mmol/l (96-110); CREATININE 0.22 mg/dl (0.50-1.10); GLUCOSE 74 mg/dL (70-110); SODIUM 146 mmol/L (135-145); eGFR VALUE FOR BLACK >90 mL/Min
[2016-11-29 05:41] LABS: ANION GAP 11 mmol/L (0-20)
[2016-11-29 05:44] LABS: CALCIUM 6.4 mg/dl (8.5-10.5)
[2016-11-29] MEDS ORDERED: VANCOMYCIN PO (17:24)
[2017-03-10] MEDS ORDERED: NORCO 5-325 TA1 EACH PO (16:27)
== END 2016-11-29 18:00 | DRG 871 ==
LOC: EDMED 08:12 → EMR2 12:43 → CCU 14:52 → 5WE 11-28 18:00
PROVIDERS: Emergency Medicine; Hospitalist; Internal Medicine; Internal Medicine Pulmonary Disease; ADMIT Internal Medicine
PROC: 02HV33Z Insertion of Infusion Device into Superior Vena Cava, Percutaneous Approach (ICD-10-PCS; principal; 2016-11-25)
PROC: B246ZZ4 Ultrasonography of Right and Left Heart, Transesophageal (ICD-10-PCS; 2016-11-27)
DX: A41.9 Sepsis, unspecified organism (principal); G93.40 Encephalopathy, unspecified; N17.9 Acute kidney failure, unspecified; A04.7 Enterocolitis due to Clostridium difficile; E87.0 Hyperosmolality and hypernatremia; R16.0 Hepatomegaly, not elsewhere classified; T39.1X1A Poisoning by 4-Aminophenol derivatives, accidental (unintentional), initial encounter; D64.9 Anemia, unspecified; E87.6 Hypokalemia; F43.10 Post-traumatic stress disorder, unspecified; E06.3 Autoimmune thyroiditis; F41.0 Panic disorder [episodic paroxysmal anxiety]; F41.9 Anxiety disorder, unspecified; F32.9 Major depressive disorder, single episode, unspecified; H40.9 Unspecified glaucoma; F17.200 Nicotine dependence, unspecified, uncomplicated; J32.9 Chronic sinusitis, unspecified; F60.3 Borderline personality disorder; Z91.5 Personal history of self-harm; R41.0 Disorientation, unspecified
CPT/HCPCS: C1751; G0480; J2250; J2405; J2543; J3010; J3370; J3480; J7030; J7050; P9045; P9612; Q9967